=== PATIENT | male | born 1940 | race Caucasian/White ===

== ENCOUNTER 2017-01-06 08:49 | Outpatient (CLI) | payer MEDICARE, OTHER ==
[2007-06-18 18:19] VITALS: BP 120/74
[~2017-01-06] VITALS: Ht 185.5 cm; Wt 113.6 kg
[~2017-01-06 08:49] MED LIST: ADALAT; ASPIRIN E.C. 8181 MG PO; AVANDIA; CARDIZEM CD 18180 MG PO; CLOPIDOGREL; COREG 25MG25 MG/TAB PO; GLUCOPHAGE; GLUCOPHAGE1000 MG PO; GLYBURIDE MICRON3 MG PO; HYTRIN5 MG PO; KLOR-CON M1010 MEQ PO; LEVOTHYROXIN0.075 MG PO; MICRONASE5 MG PO; PLAVIX 75MG TAB75 MG PO; PRAVACHOL80 MG PO; PRINIVIL40 MG PO; PROSCAR 5MG5 MG PO; SLO NIACIN500 MG PO; SYNTHROID0.175 MG PO; ZESTRIL; ZOCOR
[2017-01-06 09:37] VITALS: BP 172/584; PULSE 77; TEMP 97.5
[2017-01-06] MEDS ORDERED: CARDIZEM CD 24240 MG PO (09:45)
[2017-01-06] MEDS ORDERED: FLOVENT DI50 MCG/Act IH (09:49)
[2017-01-06] MEDS ORDERED: LASIX 40MG TABL40 MG PO (09:49)
[2017-01-06] MEDS ORDERED: NEURONTIN300 MG/CAP PO (10:04)
[2017-01-06] MEDS ORDERED: ZANTAC 150MG T150 MG PO (10:45)
[2017-01-06] MEDS ORDERED: ONGLYZA5 MG PO (10:46)
[2017-01-06] MEDS ORDERED: 00186-0370-20 IH (10:49)
[2017-01-06] MEDS ORDERED: HCTZ 25MG TAB25 MG PO (10:50)
[2017-01-06] MEDS ORDERED: CEPHALEXIN500 M1 PO (12:37)
== END 2017-01-06 13:56 | disposition home or self-care (01) ==
LOC: COL.CAR 08:49
DX: R42 Dizziness and giddiness (principal); R55 Syncope and collapse; E11.40 Type 2 diabetes mellitus with diabetic neuropathy, unspecified; I10 Essential (primary) hypertension; E03.9 Hypothyroidism, unspecified; I73.9 Peripheral vascular disease, unspecified; M19.90 Unspecified osteoarthritis, unspecified site; E78.2 Mixed hyperlipidemia; M47.897 Other spondylosis, lumbosacral region; M47.896 Other spondylosis, lumbar region; I25.10 Atherosclerotic heart disease of native coronary artery without angina pectoris; R06.01 Orthopnea
CPT/HCPCS: 27124; C1764

== ENCOUNTER 2017-12-24 20:04 | Emergency (ER) | payer MEDICARE, OTHER ==
[2007-06-18 18:19] VITALS: BP 120/74
[~2017-12-24] VITALS: Ht 185.4 cm; Wt 113.6 kg
[~2017-12-24 20:04] MED LIST changes: +00186-0370-20 IH; +CARDIZEM CD 24240 MG PO; +CEPHALEXIN500 M1 PO; +FLOVENT DI50 MCG/Act IH; +HCTZ 25MG TAB25 MG PO; +LASIX 40MG TABL40 MG PO; +NEURONTIN300 MG/CAP PO; +ONGLYZA5 MG PO; +ZANTAC 150MG T150 MG PO
[2017-12-24 20:16] VITALS: TEMP 96.3
[2017-12-24 20:30] LABS: BASO % 0.3 % (0.0-2.0); EOS # 0.1 (0.0-0.7); EOS % 0.7 % (0-4.0); GRAN # 9.6 (1.4-6.5); GRAN % 78.2 % (42.2-75.2); HEMATOCRIT 38.9 % (42.0-52.0); HEMOGLOBIN 13.2 g/dl (13.5-18.0); LYMPH # 1.8 (1.2-3.4); LYMPH % 14.6 % (20.0-51.0); MEAN CELL VOLUME 91 fl (80.0-100.0); MEAN CORPUSCULAR HEMOGLOBIN 31 pg (27.0-31.0); MEAN CORPUSCULAR HGB CONC 34 g/dl (33.0-37.0); MONO # 0.7 (0.1-0.6); MONO % 5.5 % (1.7-9.3); PLATELET COUNT 261 K/mm3 (130-400); RED BLOOD COUNT 4.27 M/mm3 (4.20-5.60); REDCELL DISTRIBUTION WIDTH-CV 13.1 % (11.5-14.5)
[2017-12-24] MEDS ORDERED: ASPIRIN 81M81 MG/TA2 PO (20:31)
[2017-12-24] MEDS ORDERED: TUMS500 MG (20:32)
[2017-12-24] MEDS ORDERED: TIAZAC240 MG PO (20:33)
[2017-12-24] MEDS ORDERED: COREG 6.256.25 MG/TA PO (20:33)
[2017-12-24 20:34] LABS: PROTHROMBIN TIME 11.2 SECONDS (9.7-12.8)
[2017-12-24] MEDS ORDERED: PROSCAR 5MG5 MG PO (20:34)
[2017-12-24] MEDS ORDERED: FLONASEALLERGY NS (20:34)
[2017-12-24 20:37] LABS: PARTIAL THROMBOPLASTIN TIME 27.2 SECONDS (26.0-37.0)
[2017-12-24] MEDS ORDERED: K-DUR20 MEQ PO (20:37)
[2017-12-24] MEDS ORDERED: HCTZ 25MG TAB25 MG PO (20:37)
[2017-12-24 20:42] LABS: ALANINE AMINOTRANSFERASE 23 U/L (21-72); ALBUMIN 4.3 gm/dL (3.5-5.0); ALKALINE PHOSPHATASE 99 U/L (50-136); ANION GAP 16 mmol/L (7-16); AST,SGOT 22 U/L (15-37); BILIRUBIN,TOTAL 0.3 mg/dL (0.0-1.0); BLOOD UREA NITROGEN 42 mg/dL (9-20); CALCIUM 9.6 mg/dL (8.4-10.2); CARBON DIOXIDE 24 mmol/L (22-30); CHLORIDE 98 mmol/L (98-107); CREATININE, serum 1.99 mg/dL (0.66-1.25); GLUCOSE 297 mg/dL (74-106); POTASSIUM 4.8 mmol/L (3.4-5.0); SODIUM 138 mmol/L (137-145); TOTAL PROTEIN 8.2 gm/dL (6.4-8.2)
[2017-12-24 20:53] LABS: TROPONIN-I < 0.012 ng/mL (0.000-0.034)
[2017-12-24] MEDS ORDERED: FLOMAX 0.40.4 MG/CAP PO (20:56)
[2017-12-24 21:23] VITALS: BP 118/67; PULSE 43
== END 2017-12-24 22:00 | disposition short-term general hospital (02) ==
LOC: COL.ER 20:04
PROVIDERS: Family Medicine
DX: R00.1 Bradycardia, unspecified (principal); E11.9 Type 2 diabetes mellitus without complications; I25.10 Atherosclerotic heart disease of native coronary artery without angina pectoris; Z95.5 Presence of coronary angioplasty implant and graft; Z90.49 Acquired absence of other specified parts of digestive tract; Z79.84 Long term (current) use of oral hypoglycemic drugs; Z79.82 Long term (current) use of aspirin; Z79.51 Long term (current) use of inhaled steroids; Z79.02 Long term (current) use of antithrombotics/antiplatelets
CPT/HCPCS: J7030

== ENCOUNTER → 2018-01-19 | Outpatient (CLI) | payer MEDICARE, OTHER ==
[~2018-01-19] MED LIST changes: +ASPIRIN 81M81 MG/TA2 PO; +COREG 6.256.25 MG/TA PO; +FLOMAX 0.40.4 MG/CAP PO; +FLONASEALLERGY NS; +K-DUR20 MEQ PO; +TIAZAC240 MG PO; +TUMS500 MG
== END ==
LOC: SUN.DIA
DX: E11.21 Type 2 diabetes mellitus with diabetic nephropathy (principal); E11.40 Type 2 diabetes mellitus with diabetic neuropathy, unspecified; E11.51 Type 2 diabetes mellitus with diabetic peripheral angiopathy without gangrene; Z79.4 Long term (current) use of insulin; E78.5 Hyperlipidemia, unspecified; I10 Essential (primary) hypertension; E03.9 Hypothyroidism, unspecified; E66.9 Obesity, unspecified; Z71.3 Dietary counseling and surveillance
CPT/HCPCS: G0108

== ENCOUNTER → 2018-02-14 | Outpatient (CLI) | payer MEDICARE, OTHER | LOC: SUN.DIA 14:08 | DX: E11.40 Type 2 diabetes mellitus with diabetic neuropathy, unspecified (principal); E11.51 Type 2 diabetes mellitus with diabetic peripheral angiopathy without gangrene; E11.21 Type 2 diabetes mellitus with diabetic nephropathy; Z79.4 Long term (current) use of insulin; E78.5 Hyperlipidemia, unspecified; I10 Essential (primary) hypertension; E03.9 Hypothyroidism, unspecified; E66.9 Obesity, unspecified; Z71.3 Dietary counseling and surveillance ==

== ENCOUNTER → 2018-02-23 | Outpatient (CLI) | payer MEDICARE, OTHER | LOC: SUN.DIA 09:30 | DX: E11.21 Type 2 diabetes mellitus with diabetic nephropathy (principal); E11.40 Type 2 diabetes mellitus with diabetic neuropathy, unspecified; E11.51 Type 2 diabetes mellitus with diabetic peripheral angiopathy without gangrene; Z79.4 Long term (current) use of insulin; E78.5 Hyperlipidemia, unspecified; I10 Essential (primary) hypertension; E03.9 Hypothyroidism, unspecified; E66.9 Obesity, unspecified; Z71.3 Dietary counseling and surveillance | CPT/HCPCS: G0109 ==

== ENCOUNTER → 2018-03-02 | Outpatient (CLI) | payer MEDICARE, OTHER | LOC: SUN.DIA 09:30 | DX: E11.21 Type 2 diabetes mellitus with diabetic nephropathy (principal); E11.40 Type 2 diabetes mellitus with diabetic neuropathy, unspecified; E11.51 Type 2 diabetes mellitus with diabetic peripheral angiopathy without gangrene; Z79.4 Long term (current) use of insulin; E78.5 Hyperlipidemia, unspecified; I10 Essential (primary) hypertension; E03.9 Hypothyroidism, unspecified; E66.9 Obesity, unspecified; Z71.3 Dietary counseling and surveillance | CPT/HCPCS: G0109 ==

== ENCOUNTER → 2018-03-16 | Outpatient (CLI) | payer MEDICARE, OTHER | LOC: SUN.DIA 09:30 | DX: E11.21 Type 2 diabetes mellitus with diabetic nephropathy (principal); E11.40 Type 2 diabetes mellitus with diabetic neuropathy, unspecified; E11.51 Type 2 diabetes mellitus with diabetic peripheral angiopathy without gangrene; Z79.4 Long term (current) use of insulin; E78.5 Hyperlipidemia, unspecified; I10 Essential (primary) hypertension; E03.9 Hypothyroidism, unspecified; E66.9 Obesity, unspecified; Z71.3 Dietary counseling and surveillance | CPT/HCPCS: G0109 ==

== ENCOUNTER → 2018-03-23 | Outpatient (CLI) | payer MEDICARE, OTHER | LOC: SUN.DIA 09:30 | DX: E11.9 Type 2 diabetes mellitus without complications (principal); E11.8 Type 2 diabetes mellitus with unspecified complications; E78.5 Hyperlipidemia, unspecified; I10 Essential (primary) hypertension; E03.9 Hypothyroidism, unspecified; N28.9 Disorder of kidney and ureter, unspecified; E11.40 Type 2 diabetes mellitus with diabetic neuropathy, unspecified | CPT/HCPCS: G0109 ==

== ENCOUNTER → 2018-05-09 | Outpatient (CLI) | payer MEDICARE, OTHER | LOC: SUN.DIA 08:42 | DX: E11.40 Type 2 diabetes mellitus with diabetic neuropathy, unspecified (principal); E78.5 Hyperlipidemia, unspecified; E03.9 Hypothyroidism, unspecified; I10 Essential (primary) hypertension; E66.9 Obesity, unspecified; I73.9 Peripheral vascular disease, unspecified ==

== ENCOUNTER → 2018-10-17 | Outpatient (CLI) | payer MEDICARE, OTHER | LOC: SUN.DIA 10-09 14:28 | DX: E11.40 Type 2 diabetes mellitus with diabetic neuropathy, unspecified (principal); E78.5 Hyperlipidemia, unspecified; E03.9 Hypothyroidism, unspecified; E66.9 Obesity, unspecified; I73.9 Peripheral vascular disease, unspecified | CPT/HCPCS: G0108 ==

== ENCOUNTER 2019-03-02 09:58 | Emergency (ER) | payer MEDICARE ==
[2007-06-18 18:19] VITALS: BP 120/74
[~2019-03-02] VITALS: Ht 185.4 cm; Wt 113.6 kg
[2019-03-02] MEDS ORDERED: RT SPIRIVA18 MCG INH (10:08)
[2019-03-02 10:17] LABS: BASO # 0.1 (0.0-0.2); BASO % 0.5 % (0.0-2.0); EOS # 0.3 (0.0-0.7); EOS % 3.1 % (0-4.0); GRAN # 6.9 (1.4-6.5); GRAN % 67.2 % (42.2-75.2); HEMATOCRIT 37.3 % (42.0-52.0); HEMOGLOBIN 12.5 g/dl (13.5-18.0); LYMPH # 2.2 (1.2-3.4); LYMPH % 21.4 % (20.0-51.0); MEAN CELL VOLUME 93 fl (80.0-100.0); MEAN CORPUSCULAR HEMOGLOBIN 31 pg (27.0-31.0); MEAN CORPUSCULAR HGB CONC 34 g/dl (33.0-37.0); MEAN PLATELET VOLUME 9.8 fl (7.4-10.4); MONO # 0.8 (0.1-0.6); MONO % 7.5 % (1.7-9.3); PLATELET COUNT 247 K/mm3 (130-400); RED BLOOD COUNT 4.02 M/mm3 (4.20-5.60); REDCELL DISTRIBUTION WIDTH-CV 12.6 % (11.5-14.5)
[2019-03-02 10:25] LABS: PROTHROMBIN TIME 11.1 SECONDS (9.7-12.8)
[2019-03-02 10:27] LABS: ALANINE AMINOTRANSFERASE 14 U/L (21-72); ALBUMIN 3.8 gm/dL (3.5-5.0); ALKALINE PHOSPHATASE 69 U/L (50-136); ANION GAP 8 mmol/L (7-16); AST,SGOT 27 U/L (15-37); BILIRUBIN,TOTAL 0.6 mg/dL (0.0-1.0); BLOOD UREA NITROGEN 34 mg/dL (9-20); CALCIUM 9.4 mg/dL (8.4-10.2); CARBON DIOXIDE 29 mmol/L (22-30); CHLORIDE 103 mmol/L (98-107); CREATININE, serum 1.42 (0.66-1.25); GLUCOSE 165 mg/dL (74-106); POTASSIUM 4.4 mmol/L (3.4-5.0); SODIUM 140 mmol/L (137-145); TOTAL PROTEIN 7.7 gm/dL (6.4-8.2)
[2019-03-02 10:28] LABS: PARTIAL THROMBOPLASTIN TIME 25.3 SECONDS (26.0-37.0)
[2019-03-02 10:39] LABS: TROPONIN-I < 0.012 ng/mL (0.000-0.035)
[2019-03-02 13:40] VITALS: BP 137/77; PULSE 64; TEMP 97.4
== END 2019-03-02 14:04 | disposition home or self-care (01) ==
LOC: COL.ER 09:58
PROVIDERS: Family Medicine
DX: R07.89 Other chest pain (principal); I10 Essential (primary) hypertension; E11.9 Type 2 diabetes mellitus without complications; I25.10 Atherosclerotic heart disease of native coronary artery without angina pectoris; Z95.0 Presence of cardiac pacemaker; Z79.02 Long term (current) use of antithrombotics/antiplatelets; Z79.84 Long term (current) use of oral hypoglycemic drugs

== ENCOUNTER 2019-06-19 09:15 | Outpatient (RCR) | payer OTHER ==
[~2019-06-19 09:15] MED LIST changes: +RT SPIRIVA18 MCG INH
== END 2019-07-03 14:16 | disposition home or self-care (01) ==
LOC: WSC 09:15
DX: R53.1 Weakness (principal)

== ENCOUNTER → 2020-06-12 | Outpatient (CLI) | payer OTHER | LOC: COL.RAD 10:07 | DX: N18.9 Chronic kidney disease, unspecified (principal) ==

== ENCOUNTER 2020-10-03 09:34 | Inpatient (IN) | payer MEDICARE ==
[~2020-10-03] VITALS: Ht 185.4 cm; Wt 110.0 kg
[2020-10-03 10:19] LABS: BASO % 0.3 % (0.0-2.0); EOS # 0.2 (0.0-0.7); GRAN # 6.6 (1.4-6.5); GRAN % 74.4 % (42.2-75.2); HEMATOCRIT 29.5 % (42.0-52.0); HEMOGLOBIN 9.5 g/dl (13.5-18.0); LYMPH # 1.3 (1.2-3.4); LYMPH % 14.5 % (20.0-51.0); MEAN CELL VOLUME 96 fl (80.0-100.0); MEAN CORPUSCULAR HEMOGLOBIN 31 pg (27.0-31.0); MEAN CORPUSCULAR HGB CONC 32 g/dl (33.0-37.0); MEAN PLATELET VOLUME 10.5 fl (7.4-10.4); MONO # 0.8 (0.1-0.6); MONO % 8.5 % (1.7-9.3); PLATELET COUNT 234 K/mm3 (130-400); RED BLOOD COUNT 3.09 M/mm3 (4.20-5.60); REDCELL DISTRIBUTION WIDTH-CV 13.4 % (11.5-14.5)
[2020-10-03 10:31] LABS: ALBUMIN 3.9 gm/dL (3.5-5.0); BILIRUBIN,TOTAL 0.3 mg/dL (0.0-1.0); CALCIUM 8.7 mg/dL (8.4-10.2); CREATININE, serum 1.98 (0.66-1.25); POTASSIUM 4.1 mmol/L (3.4-5.0); TOTAL PROTEIN 8.4 gm/dL (6.4-8.2)
[2020-10-03 10:43] LABS: TROPONIN-I 0.023 ng/mL (0.000-0.035)
[2020-10-03] MEDS ORDERED: GLUCOTROL10 MG PO (12:25)
[2020-10-03] MEDS ORDERED: PEPCID 20MG TAB20 MG PO (12:25)
[2020-10-03] MEDS ORDERED: COREG 25MG25 MG/TAB PO (12:26)
[2020-10-03] MEDS ORDERED: CARTIA XT180 MG PO (12:27)
[2020-10-03] MEDS ORDERED: LEVEMIR100 U/ML SQ (12:28)
[2020-10-03] MEDS ORDERED: PRINIVIL40 MG PO (12:28)
[2020-10-03] MEDS ORDERED: PRAVACHOL80 MG PO (12:28)
[2020-10-03 14:29] LABS: COLLECTION METHOD CLEAN CATCH
[2020-10-03 14:41] LABS: PH 5 (5-8); SQUAMOUS EPITHELIAL 0-2 /hpf; URINE APPEARANCE Clear; URINE BACTERIA None Seen /hpf; URINE BILIRUBIN Negative (NEGATIVE); URINE BLOOD 1+ (NEGATIVE); URINE COLOR Yellow; URINE GLUCOSE 1+ (NEGATIVE); URINE KETONE Negative (NEGATIVE); URINE LEUKOCYTE ESTERASE Negative (NEGATIVE); URINE NITRATE Negative (NEGATIVE); URINE PROTEIN(semi-quant) 3+ (NEGATIVE); URINE UROBILINOGEN Negative (NEGATIVE)
[2020-10-03 14:59] LABS: INR 1.1 (0.8-3.0); PROTHROMBIN TIME 12.7 SECONDS (9.7-12.8)
--- NOTE | 2020-10-03 17:00 | NUR ---
Admission assesment completed, alert/oriented, vital signs stable, denies pain or discomfort at this time, reports he is a little SOA, heart RRR/paced on tele, notified of cardiology consult and plans for heart cath on Tuesday, lungs CTA/ diminished, o2 sats WNL on room air, patient is up indepdently, denies other needs at this time
[2020-10-03 17:25] VITALS: BP 177/76; PULSE 61; TEMP 98.3
[2020-10-03 17:29] VITALS: BP 177/76; PULSE 61; TEMP 98.3
[2020-10-03 20:34] VITALS: BP 174/72; PULSE 64; TEMP 98.1
[2020-10-03 22:12] VITALS: BP 173/72
--- NOTE | 2020-10-03 23:10 | NUR ---
PATIENT WAS RECEIVED IN THE LONG FAIR SITTED ON HIS WALKER DUE MEDICATIONS GIVEN PER VIOLETTA.BP SYSTOLIC ABOVE 173 HYDRALLAZINE 20 MG GIVEN C/O DIZZINESS AND ABD UPSET,BP RECHECKED,AIRCRAFT DISPATCHER INFORMED ORDERS IN NOV.PATIENT REASSURED.
[2020-10-04] VITALS (7 sets, daily range): BP systolic 155–176; BP diastolic 68–85; PULSE 69–72; TEMP 97.3–98.1
--- NOTE | 2020-10-04 01:16 | NUR ---
Patient complained of mild pain to left leg. Requested PRN APAP. Called DARIANA Ellison and new order obtained. Given to patient at this time.
--- NOTE | 2020-10-04 05:58 | NUR ---
PATIENT HAD A CALM NIGHT ,BLOOD PRESSURE WAS 170S PROVIDER NOTIFIED,ORDERED MEDS PER NOV.NO SIGNS AND SYMPTOMS REPORTED BY THE PATIENT.DENIES PAIN.NO NEEDS AT THIS TIME
--- NOTE | 2020-10-04 07:00 | NUR ---
Report with THOR Nieto and THOR Meadows. Pt ambulating in room and hallway with steady gait and walker. Pt denies needs at this time.
[2020-10-04 09:24] LABS: MEAN CELL VOLUME 96 fl (80.0-100.0); MEAN CORPUSCULAR HGB CONC 32 g/dl (33.0-37.0); MEAN PLATELET VOLUME 9.7 fl (7.4-10.4); PLATELET COUNT 231 K/mm3 (130-400); RED BLOOD COUNT 3.15 M/mm3 (4.20-5.60); REDCELL DISTRIBUTION WIDTH-CV 13.4 % (11.5-14.5)
[2020-10-04 09:30] LABS: HEMATOCRIT 30.1 % (42.0-52.0); HEMOGLOBIN 9.6 g/dl (13.5-18.0); MEAN CORPUSCULAR HEMOGLOBIN 30 pg (27.0-31.0)
[2020-10-04 09:37] LABS: CALCIUM 8.6 mg/dL (8.4-10.2); CREATININE, serum 2.06 (0.66-1.25); POTASSIUM 4.6 mmol/L (3.4-5.0)
--- NOTE | 2020-10-04 18:58 | NUR ---
Report with THOR Rogel. Pt sitting in his walker outside room door and intermittently ambulating in hallway. Pt denies needs at this time.
--- NOTE | 2020-10-04 19:49 | NUR ---
CALLED TO HAVE TELE LEADS CHECKED, POOR TRANSMISSION AT THIS TIME
[2020-10-05 00:20] VITALS: BP 175/76; PULSE 66; TEMP 97.7
[2020-10-05 03:20] VITALS: BP 171/70; PULSE 69; TEMP 97.8
[2020-10-05 07:14] VITALS: BP 169/75; PULSE 68; TEMP 97.7
--- NOTE | 2020-10-05 08:00 | NUR ---
Assessment complete. Pt sitting up on side of bed, A&O x 4. Physical assessment unremarkable. Pt denies pain or needs at this time. Saline lock IV to right forearm without s/s of complications. POC reviewed with pt. Call light in reach.
[2020-10-05 08:12] LABS: MEAN CELL VOLUME 94 fl (80.0-100.0); MEAN CORPUSCULAR HGB CONC 33 g/dl (33.0-37.0); MEAN PLATELET VOLUME 10.2 fl (7.4-10.4); PLATELET COUNT 225 K/mm3 (130-400); RED BLOOD COUNT 3.05 M/mm3 (4.20-5.60); REDCELL DISTRIBUTION WIDTH-CV 13.5 % (11.5-14.5)
[2020-10-05 08:14] LABS: HEMATOCRIT 28.6 % (42.0-52.0); HEMOGLOBIN 9.3 g/dl (13.5-18.0); MEAN CORPUSCULAR HEMOGLOBIN 30 pg (27.0-31.0)
[2020-10-05 08:26] LABS: CALCIUM 8.6 mg/dL (8.4-10.2); CREATININE, serum 2.1 (0.66-1.25); POTASSIUM 4.2 mmol/L (3.4-5.0)
--- NOTE | 2020-10-05 11:36 | NUR ---
SW called patient's to complete intake. Patient's Stephany [phone]. Spouse is also the DPOA- as well as daughter Jennifer [phone]. Spouse states that patient does utilize a walker at home and is independent with ADL's. Spouse provides that patient's PCP is Dr. Vega and he obtains his medications from the [facility] or [facility], and provides that he is able to afford his medications. Spouse provides that patient does not utilize any services at this time and doesn't feel as though he will need services upon DC. SW provided information in regards to the SW continuing to follow patient should there be any resources that are needed up on DC. SW will continue to follow.
[2020-10-05 11:48] VITALS: BP 164/72; PULSE 61; TEMP 97.8
[2020-10-05 15:47] VITALS: BP 159/78; PULSE 67; TEMP 97.9
--- NOTE | 2020-10-05 16:01 | NUR ---
IVF's stopped and diconnected per phone order to hold fluids. Pt reports headache still lingering and building, requesting Tylenol which is administered. Pt reports nausea has improved since medication given. Sched One time dose of Lasix administered per orders, pt encouraged to use urinal for voiding to monitor output, verbalizes understanding. Call light in reach.
--- NOTE | 2020-10-05 18:05 | NUR ---
Pt sitting on side of bed following supper, reports improvement to headache. Pt asking about taking the dressings off his bilat lower ext before tonight. No further needs reported. Call light in reach.
--- NOTE | 2020-10-05 19:09 | NUR ---
Report with THOR Rogel. Pt resting in bed with eyes closed, resp even and unlabored. jacquard loom card changer nurse agrees to assist with dressings when pt awake.
[2020-10-05 20:21] VITALS: BP 163/79; PULSE 75; TEMP 97.9
[2020-10-06] VITALS (15 sets, daily range): BP systolic 110–198; BP diastolic 45–128; PULSE 59–78; TEMP 97.4–98.4
--- NOTE | 2020-10-06 06:23 | NUR ---
Patient has been NPO since midnight. No requests or concerns verbalized by patient at this time. 0600 IV fluids started at 0600.
[2020-10-06 06:47] LABS: CALCIUM 8.5 mg/dL (8.4-10.2); CREATININE, serum 2.37 (0.66-1.25); POTASSIUM 4.4 mmol/L (3.4-5.0)
[2020-10-06 07:03] LABS: INR 1.2 (0.8-3.0); PROTHROMBIN TIME 12.9 SECONDS (9.7-12.8)
[2020-10-06 07:06] LABS: PARTIAL THROMBOPLASTIN TIME 29.5 SECONDS (26.0-37.0)
--- NOTE | 2020-10-06 07:57 | NUR ---
patient alert and oriented. Aide report 86-88% on room air. placed patient on 2L O2 NC, saturation at 93%. RLE 3+ edema, LLE 2+ edema. disolored BLE. resting in bed at this time.
[2020-10-06 08:05] LABS: MEAN CELL VOLUME 97 fl (80.0-100.0); MEAN CORPUSCULAR HGB CONC 32 g/dl (33.0-37.0); MEAN PLATELET VOLUME 10.9 fl (7.4-10.4); PLATELET COUNT 212 K/mm3 (130-400); RED BLOOD COUNT 2.82 M/mm3 (4.20-5.60); REDCELL DISTRIBUTION WIDTH-CV 13.4 % (11.5-14.5)
[2020-10-06 08:08] LABS: HEMATOCRIT 27.3 % (42.0-52.0); HEMOGLOBIN 8.7 g/dl (13.5-18.0); MEAN CORPUSCULAR HEMOGLOBIN 31 pg (27.0-31.0)
--- NOTE | 2020-10-06 10:36 | NUR ---
SEE MERGE DOCUMENTATION FOR MEDICATION ADMINISTRATION TIMES AND INTRA/POST PROCEDURE SEDATION ASSESSMENTS. RIGHT HAND BARBEAU TEST POSITIVE.
--- NOTE | 2020-10-06 11:37 | NUR ---
patient back from experimental machining lab manager. on 2L O2 at 95% 14CC ON Right radial.
[2020-10-06 12:41] LABS: IRON,SERUM 41 ug/dL (35-150)
[2020-10-06 12:50] LABS: TOTAL IRON BINDING CAPACITY 277 ug/dL (261-462)
--- NOTE | 2020-10-06 14:53 | NUR ---
Patient worked with PT/OT and recommendation is for Home. SW will continue to follow.
[2020-10-07 04:36] VITALS: BP 118/56; PULSE 65; TEMP 97.8
[2020-10-07 06:55] LABS: HEMOGLOBIN 7.9 g/dl (13.5-18.0); MEAN CELL VOLUME 99 fl (80.0-100.0); MEAN CORPUSCULAR HEMOGLOBIN 31 pg (27.0-31.0); MEAN CORPUSCULAR HGB CONC 32 g/dl (33.0-37.0); MEAN PLATELET VOLUME 10.8 fl (7.4-10.4); PLATELET COUNT 198 K/mm3 (130-400); RED BLOOD COUNT 2.53 M/mm3 (4.20-5.60); REDCELL DISTRIBUTION WIDTH-CV 13.4 % (11.5-14.5)
[2020-10-07 07:05] LABS: CALCIUM 8.2 mg/dL (8.4-10.2); CREATININE, serum 2.63 (0.66-1.25); POTASSIUM 4.7 mmol/L (3.4-5.0)
[2020-10-07 07:54] VITALS: BP 134/63; PULSE 63; TEMP 97.8
--- NOTE | 2020-10-07 09:45 | NUR ---
Initial visit; Patient thanked Heel Coverer for loooking in on him, listening and offering God's blessings.
[2020-10-07 11:29] VITALS: BP 107/49; PULSE 59; TEMP 97.7
--- NOTE | 2020-10-07 13:08 | NUR ---
Pt assessment completed and charted, medications administered per nov. pt A&O, 1 assist in room w/ walker. Pt on room air at this time. At noon VS check, pt 88% on room air, rechecked.. at 93% on room air. Pt denies any SOB, N/V/D, chest pain, general pain. Pt has LFA INT IV that flushes well, no issues. Pt has BLE edema 2-3+, RLE has blisters, unopened, usually wrapped and cared for by , now open to air. Pt requesting leaving leg open to air. Pt had heart cath 10/06 (yesterday), rt radial site CDI, covered w/ bandaid. Pt on tele, paced. Rt LS cta, LLL diminished. No other issues noted at this time. Call light within reach.
[2020-10-07 16:15] VITALS: BP 146/62; PULSE 69; TEMP 97.6
--- NOTE | 2020-10-07 16:27 | NUR ---
Carrot Harvester followed up with patient to discuss home health services. Patient states he would be interested in having services through [facility] again if he qualifies. Patient states [facility] time the [facility] paid [facility] these services, however patient also has Medicare [employer]. PEDRO PABLO contacted THOR Chappell at the [facility] who requested records. PEDRO PABLO faxed. Misti advised that even with [employer], the VA would have to approve services. PEDRO PABLO contacted Lisa at [facility] and faxed referral. Lisa states she thinks patient's services could be approved through [employer] and they would not necessarily need [facility] approval. Lisa states in the past they have run patient's advantage plan as they payer source. PEDRO PABLO will continue to follow.
[2020-10-07 19:09] LABS: URINE PROTEIN:CREAT RATIO 2.15 (0.00-0.14)
[2020-10-07 21:07] VITALS: BP 142/66; PULSE 65; TEMP 97.8
[2020-10-08] VITALS (7 sets, daily range): BP systolic 122–148; BP diastolic 59–71; PULSE 58–68; TEMP 97.2–97.5
--- NOTE | 2020-10-08 06:00 | NUR ---
PATIENT HAD A CALM NIGHT,ON O2 3L VIA NC.DUE MEDS GIVEN,NO CONCERNS AT THIS TIME.
[2020-10-08 07:30] LABS: BASO % 0.3 % (0.0-2.0); EOS # 0.1 (0.0-0.7); EOS % 1.6 % (0-4.0); GRAN # 4.8 (1.4-6.5); GRAN % 69.9 % (42.2-75.2); LYMPH # 1.3 (1.2-3.4); LYMPH % 18.7 % (20.0-51.0); MEAN CELL VOLUME 97 fl (80.0-100.0); MEAN CORPUSCULAR HGB CONC 32 g/dl (33.0-37.0); MEAN PLATELET VOLUME 10.7 fl (7.4-10.4); MONO # 0.6 (0.1-0.6); MONO % 9.2 % (1.7-9.3); PLATELET COUNT 210 K/mm3 (130-400); RED BLOOD COUNT 2.86 M/mm3 (4.20-5.60); REDCELL DISTRIBUTION WIDTH-CV 13.2 % (11.5-14.5)
[2020-10-08 07:32] LABS: HEMATOCRIT 27.7 % (42.0-52.0); HEMOGLOBIN 8.8 g/dl (13.5-18.0); MEAN CORPUSCULAR HEMOGLOBIN 31 pg (27.0-31.0)
[2020-10-08 07:40] LABS: CALCIUM 8.4 mg/dL (8.4-10.2); CREATININE, serum 3.16 (0.66-1.25); POTASSIUM 4.7 mmol/L (3.4-5.0)
--- NOTE | 2020-10-08 08:33 | NUR ---
Pt assessment completed and charted, medications administered per nov. pt A&O, independent in room w/ walker. pt on 2L NC upon entry, pt doesn't wear O2 at baseline and only occasionally while here. pt satting 95-97%, O2 removed at this time per pt request. Breathing is even and unlabored, RLL LS diminished, allother parra CTA. LFA INT IV flushes w/o issue. Pt on tele, paced, no issues noted. BLE edema 2-3+, reddened, chronic blisters to LLE, unopened, intact, open to air. Pt c/o of rt leg pain, per pt "d/t to sleeping in the bed". Requested and received tylenol PRN per nov. Pulses strong bilaterally. No further needs at this time. Call light within reach, breakfast delivered.
--- NOTE | 2020-10-08 14:47 | NUR ---
Pt ambulating halls independently, requesting stool softener. DARIANA dimas notified, she will place order.
--- NOTE | 2020-10-08 17:39 | NUR ---
Pt ambulating from bathroom back to bed, sitting up for dinner, reports pain to upper legs and hips 8 out of 10, requesting Tyenol which was administered per orders. Pt denies further needs at this time. Call light in reach.
--- NOTE | 2020-10-08 18:19 | NUR ---
Pt c/o dizziness and nausea approx 40 min following sched Hydralazine. contracts director provider notified. Orders placed.
--- NOTE | 2020-10-08 18:59 | NUR ---
Report with THOR Meadows and THOR Nieto. Pt resting in bed, reports continued dizziness. No further needs reported. Call light in reach.
--- NOTE | 2020-10-08 20:10 | NUR ---
Patient complaining of severe pain to bilateral hips, more on left side, shoot down left leg. Had already received PRN APAP which was not effective. Spoke with ELIDIA Munoz. New order for PRN Ultram received.
--- NOTE | 2020-10-08 22:11 | NUR ---
PATIENT WAS RECEIVED FAIR IN BED REPORTED NAUSEA AND DIZZINESS.DUE MEDICATION DONE,ASSESSMENT DONE.GIVEN TRAMADOL FOR BACK PAIN.PATIENT LEFT COMFORTABLE.NO OTHER NEEDS AT THIS TIME.
[2020-10-09 00:27] VITALS: BP 102/44; PULSE 60; TEMP 97.4
--- NOTE | 2020-10-09 00:50 | NUR ---
VITALS TAKEN PATIENT SATS AT 87.PUT UP ON O2 2 VIA NC.NOW SATTING ABOVE 90.
[2020-10-09 05:23] VITALS: BP 137/50; PULSE 59; TEMP 97.5
[2020-10-09 08:00] LABS: CALCIUM 8.1 mg/dL (8.4-10.2); CREATININE, serum 3.29 (0.66-1.25); POTASSIUM 5.2 mmol/L (3.4-5.0)
[2020-10-09 08:06] LABS: HEMATOCRIT 25.7 % (42.0-52.0); HEMOGLOBIN 8.3 g/dl (13.5-18.0); MEAN CELL VOLUME 96 fl (80.0-100.0); MEAN CORPUSCULAR HEMOGLOBIN 31 pg (27.0-31.0); MEAN CORPUSCULAR HGB CONC 32 g/dl (33.0-37.0); MEAN PLATELET VOLUME 10.7 fl (7.4-10.4); PLATELET COUNT 193 K/mm3 (130-400); RED BLOOD COUNT 2.67 M/mm3 (4.20-5.60); REDCELL DISTRIBUTION WIDTH-CV 13.3 % (11.5-14.5)
[2020-10-09 08:21] VITALS: BP 127/59; PULSE 74; TEMP 97.4
[2020-10-09 12:00] VITALS: BP 110/41; PULSE 63
--- NOTE | 2020-10-09 12:56 | NUR ---
Consulting Marine Engineer attended clinical rounds with the team and patient's , Stephany is at bedside. SW followed up with Stephany and patient about [facility]. Patient states he will see how things continue to go here and would still be open to HH services again if he feels he needs them. SW will continue to follow.
--- NOTE | 2020-10-09 13:46 | NUR ---
Primary nurse was assisted with [phone] patient care by [employer] student Dandre De Jesus and [employer] instructor Helena Huitron RN-.
[2020-10-09 15:18] LABS: CALCIUM 8.1 mg/dL (8.4-10.2); CREATININE, serum 3.59 (0.66-1.25); POTASSIUM 5.6 mmol/L (3.4-5.0)
[2020-10-09 17:27] VITALS: BP 128/57; PULSE 61; TEMP 37.5
--- NOTE | 2020-10-09 20:30 | NUR ---
PATIENT WAS RECEIVED WEAK IN BED C/O NAUSEA, VOMITTING AND DIZZINESS.WAS IN PAIN BUT COULD NOT TOLERATE PO MEDS.PROVIDER NOTIFIED,NO NEW ORDERS.PATIENT REQUESTED TO HAVE HIS BED AND MATTRESS CHANGED BECAUSE IT WAS UNCOMFORTABLE SAME DONE AND PATIENT LEFT COMFORTABLE.INSULIN WAS NOT GIVEN PT HAD NO ORAL INTAKE.NO OTHER NEEDS AT THIS TIME.
[2020-10-09 20:43] VITALS: BP 123/51; PULSE 65; TEMP 97.5
[2020-10-10 00:11] VITALS: BP 130/57; PULSE 62; TEMP 97.5
[2020-10-10 03:50] VITALS: BP 129/64; PULSE 59; TEMP 97.8
--- NOTE | 2020-10-10 05:47 | NUR ---
PATIENT REPORTS A GOOD NIGHT.PATIENT IS WEAK,HAS MILD NAUSEA AND THE DIZZINESS HAS REDUCED.ON O2 VIA NC AT 3L.PATIENT DENIES PAIN.NO CONCERNS AT THIS TIME.
[2020-10-10 07:10] LABS: BASO % 0.5 % (0.0-2.0); EOS # 0.1 (0.0-0.7); EOS % 0.8 % (0-4.0); GRAN % 75.6 % (42.2-75.2); LYMPH % 15.2 % (20.0-51.0); MEAN CELL VOLUME 96 fl (80.0-100.0); MEAN CORPUSCULAR HGB CONC 32 g/dl (33.0-37.0); MEAN PLATELET VOLUME 10.6 fl (7.4-10.4); MONO # 0.5 (0.1-0.6); MONO % 7.4 % (1.7-9.3); PLATELET COUNT 212 K/mm3 (130-400); RED BLOOD COUNT 2.72 M/mm3 (4.20-5.60); REDCELL DISTRIBUTION WIDTH-CV 13.3 % (11.5-14.5)
[2020-10-10 07:23] LABS: CALCIUM 8.3 mg/dL (8.4-10.2); CREATININE, serum 4.01 (0.66-1.25); POTASSIUM 5.5 mmol/L (3.4-5.0)
[2020-10-10 07:35] LABS: HEMATOCRIT 26.2 % (42.0-52.0); HEMOGLOBIN 8.3 g/dl (13.5-18.0); MEAN CORPUSCULAR HEMOGLOBIN 31 pg (27.0-31.0)
[2020-10-10 09:07] VITALS: BP 123/77; PULSE 72; TEMP 97.5
[2020-10-10 12:40] VITALS: BP 119/55; PULSE 62; TEMP 97.6
--- NOTE | 2020-10-10 12:42 | NUR ---
Pump Rebuilder collaborated with DARIANA Huston who advised patient would benefit from being seen by PT again. PT had signed off at the beginning of patient's stay as he was doing well. SW contacted JENNIFER To who advised he would see patient today.
--- NOTE | 2020-10-10 14:17 | NUR ---
Primary nurse was assisted with [phone] patient care by [employer] student Patricia De Jesus and [employer] instructor Helena Huitron RN-bc.
[2020-10-10 16:00] VITALS: BP 129/52; PULSE 67; TEMP 98.5
[2020-10-10 16:50] LABS: CALCIUM 8.2 mg/dL (8.4-10.2); CREATININE, serum 4.05 (0.66-1.25); POTASSIUM 5.7 mmol/L (3.4-5.0)
--- NOTE | 2020-10-10 18:32 | NUR ---
PT HAS HAD AN UNEVENTFUL DAY. HAS BEEN AT BEDSIDE ALL DAY. PT HAS HAD COMPLAINT OF PAIN IN THE LEFT LEG. BLISTERS ARE PRESENT ON BILATERAL LOWER EXTREMETIES. THE RIGHT LEG IS PARTICULARLY WORSE THAN THE LEFT, A LARGER 1 INCH BY 2 INCH BLISTER IS NOTED. PT DID HAVE SURGERY ON HIS RIGHT EYELID 5YEARS AGO, AND HE HAS BEEN RUBBING AT IT ALL DAY, IT HAS BEGUN TO BLEED. HE STATES THIS IS NORMAL FOR HIM, AND DOES NOT NEED/WANT ANY INTERVENTIONS FOR IT. NO OTHER CONCERNS AT THIS TIME.
[2020-10-10 20:47] VITALS: BP 132/60; PULSE 73; TEMP 97.9
[2020-10-11] VITALS (7 sets, daily range): BP systolic 115–152; BP diastolic 42–71; PULSE 57–66; TEMP 97.4–98.1
[2020-10-11 07:09] LABS: BASO % 0.4 % (0.0-2.0); EOS # 0.1 (0.0-0.7); EOS % 1.8 % (0-4.0); GRAN # 3.9 (1.4-6.5); GRAN % 68.2 % (42.2-75.2); LYMPH # 1.1 (1.2-3.4); LYMPH % 19.5 % (20.0-51.0); MEAN CELL VOLUME 96 fl (80.0-100.0); MEAN CORPUSCULAR HGB CONC 32 g/dl (33.0-37.0); MONO # 0.6 (0.1-0.6); MONO % 9.9 % (1.7-9.3); PLATELET COUNT 200 K/mm3 (130-400); RED BLOOD COUNT 2.68 M/mm3 (4.20-5.60); REDCELL DISTRIBUTION WIDTH-CV 13.5 % (11.5-14.5)
[2020-10-11 07:14] LABS: ALBUMIN 3.7 gm/dL (3.5-5.0); CALCIUM 8.4 mg/dL (8.4-10.2); CREATININE, serum 4.02 (0.66-1.25); PHOSPHOROUS 5.9 mg/dL (2.5-4.5); POTASSIUM 5.2 mmol/L (3.4-5.0)
[2020-10-11 07:18] LABS: HEMATOCRIT 25.8 % (42.0-52.0); HEMOGLOBIN 8.3 g/dl (13.5-18.0); MEAN CORPUSCULAR HEMOGLOBIN 31 pg (27.0-31.0)
--- NOTE | 2020-10-11 14:11 | NUR ---
Pt assessment completed and charted, medications administered per mar. Pt A&O, at bedside. Pt has LFA INT IV that flushes well. Pt on 2L NC intermittently throughout day, wears 2L NC HS. LS cta, HRRR, paced on tele. Pt denies chest pain, dizziness, N/V/D, numbness or tingling. Pt has blisters to BLE, 3+ edema. Rt posterior calf has large blister/opened, redness. Blisters to Lt calf are unopened/redness noted. Pt c/o lt hip pain/soreness d/t "sleeping position", denied need for medication at this time. Pt ambulated w/ PT using walker, 120 ft. No further needs expressed at this time. Call light within reach.
--- NOTE | 2020-10-11 21:13 | NUR ---
PT IS LAYING IN BED. ASSESSMENT COMPLETED. PT AMBULATED TO THE BATHROOM AND HAD 275 OUTPUT, YELLOW AND CLEAR. PT HAS C/O DISCOMFORT IN BOTH HIPS, AND WEAKNESS OF THE LEGS. NO OTHER CONCERNS AT THIS TIME.
--- NOTE | 2020-10-11 22:26 | NUR ---
PT HAS BEEN UP TO THE BATHROOM 2 TIMES THIS SHIFT. NO BOWEL MOVEMENT YET, GIVEN MIRALAX AND PRUNE JUICE FOR CONSTIPATION. PT STATES HE IS HAVING DIFFICULTY SLEEPING, BUT DOES NOT WANT TO TAKE ANY MEDICATION FOR INSOMNIA. NO FURTHER CONCERNS AT THIS TIME.
[2020-10-12] VITALS (8 sets, daily range): BP systolic 139–182; BP diastolic 57–76; PULSE 60–69; TEMP 97.3–98.4
--- NOTE | 2020-10-12 02:48 | NUR ---
PT HAS SOME BRUISING ON THE LEFT ABDOMEN. WHEN ASKED ABOUT IT, THE PATIENT STATED THAT THIS IS FROM "ALL THE NEEDLE STICKS". (THIS IS REFERING TO HIS INSULIN SHOTS.)
--- NOTE | 2020-10-12 04:27 | NUR ---
PT REST IN BED AND IS SLOW TO TURN AND GET UP OUT OF BED. RIGHT UPPER EXTREMITY WITH NO S/S INFILTRATION OF IV SITE. BLISTER ON RIGHT LE HAS BROKE OPEN. LEFT LOWER EXT. WITH SEVERAL SMALL BLISTERS. EDEMA TO BILAT LE 2-3+. RIGHT EYE BECOMES A LITTLE CRUSTY AFTER EYE HAS BEEN WATERING. STATES HE HAD A PROCEDURE THAT DID NOT GO RIGHT ON HIE EYE. CALL LIGHT IN REACH.
[2020-10-12 06:08] LABS: BASO % 0.4 % (0.0-2.0); EOS # 0.1 (0.0-0.7); EOS % 1.8 % (0-4.0); GRAN # 3.7 (1.4-6.5); GRAN % 64.1 % (42.2-75.2); HEMOGLOBIN 8.3 g/dl (13.5-18.0); LYMPH # 1.2 (1.2-3.4); LYMPH % 20.6 % (20.0-51.0); MEAN CELL VOLUME 95 fl (80.0-100.0); MEAN CORPUSCULAR HEMOGLOBIN 31 pg (27.0-31.0); MEAN CORPUSCULAR HGB CONC 33 g/dl (33.0-37.0); MEAN PLATELET VOLUME 10.8 fl (7.4-10.4); MONO # 0.7 (0.1-0.6); MONO % 12.7 % (1.7-9.3); PLATELET COUNT 188 K/mm3 (130-400); RED BLOOD COUNT 2.64 M/mm3 (4.20-5.60); REDCELL DISTRIBUTION WIDTH-CV 13.5 % (11.5-14.5)
[2020-10-12 06:17] LABS: CALCIUM 8.3 mg/dL (8.4-10.2); CREATININE, serum 3.7 (0.66-1.25); POTASSIUM 4.8 mmol/L (3.4-5.0)
--- NOTE | 2020-10-12 06:38 | NUR ---
PT HAD UNEVENTFUL NIGHT. WAS ABLE TO AMBULATE TO THE BATHROOM AND BACK WITH 1 ASSIST. NO OTHER CONCERNS.
--- NOTE | 2020-10-12 15:54 | NUR ---
Pt assessment completed and charted, medications administered per nov. Pt A&O, 1 assist w/ walker in room. Pt has LFA INT IV that flushes well w/o issue. Pt on room air this morning, occasionally wearing 1-2 L oxymask when napping/sleeping. Pt on tele, paced, no issues noted. Pt on fluid restriction, verbalized understanding. No insulin coverage need this so far today. VSS. Pt has blisters to BLE, unopened on LLE, opened to RLE, not covered w/ dressing, 3+ edema, reddened. Lt eye red/irritated, per pt "old surgery gone bad". Pt denies any intervention for eye. Pt abdomen has increasing bruising and lumps noticed today from heparin and insulin shots. Pt denies any pain to abdomen. Pt does c/o pain to left groin area and bilateral hips. Pt received pain meds from exchange underwriting consultant during shift change, pt has not needed pain medications throughout day. Pt requesting pain medications at this time. Administered per nov. Pt has become increasingly weak and tired throughout last week.
--- NOTE | 2020-10-12 18:47 | NUR ---
Pt complaining of nausea and dizziness. VS obtained, satting 96% on 2L oxymask. Oxymask removed at this time. HRRR. Pt SBP 174/73 at 1600 VS check, coreg administered per schedule at 1700. SBP rechecked at 1815, 176/76. Phenergan per administered, pt also eating crackers. Will recheck BP and administer PRN labetalol if needed.
--- NOTE | 2020-10-12 21:40 | NUR ---
PATIENT RECEIVED IN BED REPORTED PAIN ON BHIPS.NIGHT PROVIDER INFORMED ORDERS PER PT NOTES.DUE MEDS GIVEN,ASSESSMENT DONE.ASSISTED TO HAVE HIS XRAYS.
[2020-10-13 04:23] VITALS: BP 159/65; PULSE 62; TEMP 97.3
--- NOTE | 2020-10-13 05:11 | NUR ---
PATIENT IS CALM IN BED,NAUSEA HAS REDUCED.AMBULATING WITH ASSISTANCE TO THE BATHROOM.NO NEEDS AT THIS TIME
[2020-10-13 06:42] LABS: BASO % 0.5 % (0.0-2.0); EOS # 0.1 (0.0-0.7); EOS % 2.1 % (0-4.0); GRAN # 3.8 (1.4-6.5); LYMPH # 1.1 (1.2-3.4); LYMPH % 19.6 % (20.0-51.0); MEAN CELL VOLUME 97 fl (80.0-100.0); MEAN CORPUSCULAR HGB CONC 32 g/dl (33.0-37.0); MEAN PLATELET VOLUME 10.6 fl (7.4-10.4); MONO # 0.7 (0.1-0.6); MONO % 11.5 % (1.7-9.3); PLATELET COUNT 208 K/mm3 (130-400); RED BLOOD COUNT 2.78 M/mm3 (4.20-5.60); REDCELL DISTRIBUTION WIDTH-CV 13.5 % (11.5-14.5)
[2020-10-13 06:50] LABS: CALCIUM 8.6 mg/dL (8.4-10.2); CREATININE, serum 3.34 (0.66-1.25); POTASSIUM 4.5 mmol/L (3.4-5.0)
[2020-10-13 07:28] VITALS: BP 180/76; PULSE 60; TEMP 97.2
[2020-10-13 07:34] LABS: HEMATOCRIT 26.9 % (42.0-52.0); HEMOGLOBIN 8.7 g/dl (13.5-18.0); MEAN CORPUSCULAR HEMOGLOBIN 31 pg (27.0-31.0)
--- NOTE | 2020-10-13 07:57 | NUR ---
PT AMBULATED TO THE BATHROOM, OUTPUT OF 300ML YELLOW, CLEAR URINE. PT IS STEADY WITH THE WALKER. BACK TO BED, AND EATING BREAKFAST. NO CONCERNS AT THIS TIME. CALL LIGHT WITHIN REACH.
--- NOTE | 2020-10-13 11:39 | NUR ---
PT HAS AN ORDER FOR CATHETER AND STRICT I/O'S WELL A BUMEX GTT. WILL MONITOR CLOSELY. NO FURTHER CONCERNS AT THIS TIME.
[2020-10-13 11:59] VITALS: BP 161/75; PULSE 59; TEMP 97.4
[2020-10-13 15:52] VITALS: BP 176/71; PULSE 58; TEMP 97.3
[2020-10-13 17:48] VITALS: BP 159/76; PULSE 64
[2020-10-13 20:00] VITALS: BP 157/68; PULSE 61; TEMP 97.3
--- NOTE | 2020-10-13 20:00 | NUR ---
Bedside shift report received from THOR Kraft. At time of assessment, patient is resting in bed; He is alert and oriented and complains of pain in left hip 8/10; PRN Ultram administered. Lungs are clear in all lobes, HR normal and regular, pulses 2/1. Bilateral lower extremities have 3+ pitting edema and have various venous stasis ulcers; The back of the right lower leg has a large, open ulcer that is SEWER HAND per doctor's recs. Patient wears 3 liters oxygen via oxymask and is tolerating well. Chaudhry is draining pale yellow, clear urine. Comfort measures met and call light in reach.
[2020-10-14 00:40] VITALS: BP 158/69; PULSE 63; TEMP 97.5
[2020-10-14 06:24] VITALS: BP 147/45; PULSE 60; TEMP 97.9
[2020-10-14 07:20] LABS: BASO % 0.3 % (0.0-2.0); EOS # 0.2 (0.0-0.7); EOS % 2.5 % (0-4.0); GRAN % 66.2 % (42.2-75.2); LYMPH # 1.2 (1.2-3.4); LYMPH % 19.4 % (20.0-51.0); MEAN CELL VOLUME 98 fl (80.0-100.0); MEAN CORPUSCULAR HGB CONC 32 g/dl (33.0-37.0); MEAN PLATELET VOLUME 10.7 fl (7.4-10.4); MONO # 0.7 (0.1-0.6); MONO % 11.4 % (1.7-9.3); PLATELET COUNT 231 K/mm3 (130-400); REDCELL DISTRIBUTION WIDTH-CV 13.6 % (11.5-14.5)
[2020-10-14 07:24] LABS: HEMATOCRIT 29.5 % (42.0-52.0); HEMOGLOBIN 9.4 g/dl (13.5-18.0); MEAN CORPUSCULAR HEMOGLOBIN 31 pg (27.0-31.0)
[2020-10-14 07:28] LABS: ALBUMIN 3.8 gm/dL (3.5-5.0); CALCIUM 8.5 mg/dL (8.4-10.2); CREATININE, serum 3.04 (0.66-1.25); PHOSPHOROUS 4.8 mg/dL (2.5-4.5)
[2020-10-14 08:10] VITALS: BP 132/56
[2020-10-14] MEDS ORDERED: 00186-0370-20 IH (08:46)
[2020-10-14] MEDS ORDERED: SPIRIVA RE2.5 MCG/Ac IH (08:46)
--- NOTE | 2020-10-14 09:45 | NUR ---
pt assessment completed and charted, medications administered per nov. Pt A&O, SBA w/ walker in room. Pt intermittently on O2. O2 check prior to rounds, pt satting 89%, placed on oxymask 2L. Pt had nausea when breakfast tray arrived, set aside for awhile, attempted to eat later, some vomiting of eggs noted. Pt states phenergan has caused him some confusion, provided w/ crackers and sprite at this time, will discuss w/ physician. Pt has not had BM in about a week. Bowel regimen started of hot water and prunes, vomited some of it up this morning. Also provided w/ scheduled miralax, possibly vomited that up as well. Pt has choudhury in place, draining cloudy yellow urine, 1000 ml output collected this morning. Bumex gtt to LFA running, decreased this morning from 5 to 2ml/hr. BLE edema 3+ noted, some swelling has improved. Blisters to BLE, rt posterior calf opened, red. LLE blisters unopened. bruising noted to abdomen from insulin and hep shots, physicians aware, no new orders at this time. pt ambulated w/ PT using walker, did well. No further needs expressed at this time.
--- NOTE | 2020-10-14 10:31 | NUR ---
Coffee Bar Attendant attended clinical rounds with the team and patient reports that he is nauseous and has not had a bowel movement. SW contacted Lisa at [facility] yesterday to provide update. PEDRO PABLO will continue to follow.
[2020-10-14 12:37] VITALS: BP 138/50; PULSE 62; TEMP 97.7
[2020-10-14 16:00] VITALS: BP 147/63; PULSE 65; TEMP 97.6
[2020-10-14 20:59] VITALS: BP 149/51; PULSE 61; TEMP 97.6
--- NOTE | 2020-10-14 21:00 | NUR ---
PATIENT WAS RECEIVED CALM IN BED,MEDS GIVEN VITALS DONE,ASSESMENT DONE.ON O2 THEAPY,BUMEX DRIP DRIPPING WELL.NO CONCERNS REPORTED.NO NEEDS AT THIS TIME.
[2020-10-15] VITALS (7 sets, daily range): BP systolic 138–169; BP diastolic 51–69; PULSE 59–66; TEMP 97.5–98.6
--- NOTE | 2020-10-15 06:09 | NUR ---
PATIENT HAD A RESTFUL NIGHT.PATIENT IS ON 2L OF O2.HE DENIES NAUSEA,REPORTS HIP PAIN,DECLINES TO HAVE PAIN MEDS.NO OTHER NEEDS AT THIS TIME.
[2020-10-15 07:05] LABS: BASO % 0.4 % (0.0-2.0); EOS # 0.1 (0.0-0.7); EOS % 2.1 % (0-4.0); GRAN # 4.3 (1.4-6.5); GRAN % 64.2 % (42.2-75.2); LYMPH # 1.4 (1.2-3.4); LYMPH % 21.3 % (20.0-51.0); MEAN CELL VOLUME 96 fl (80.0-100.0); MEAN CORPUSCULAR HGB CONC 32 g/dl (33.0-37.0); MEAN PLATELET VOLUME 10.7 fl (7.4-10.4); MONO # 0.8 (0.1-0.6); MONO % 11.6 % (1.7-9.3); PLATELET COUNT 233 K/mm3 (130-400); RED BLOOD COUNT 2.86 M/mm3 (4.20-5.60); REDCELL DISTRIBUTION WIDTH-CV 13.5 % (11.5-14.5)
[2020-10-15 07:06] LABS: HEMATOCRIT 27.5 % (42.0-52.0); HEMOGLOBIN 8.7 g/dl (13.5-18.0); MEAN CORPUSCULAR HEMOGLOBIN 30 pg (27.0-31.0)
[2020-10-15 07:22] LABS: ALBUMIN 3.5 gm/dL (3.5-5.0); CALCIUM 8.3 mg/dL (8.4-10.2); CREATININE, serum 2.89 (0.66-1.25); PHOSPHOROUS 3.9 mg/dL (2.5-4.5); POTASSIUM 3.8 mmol/L (3.4-5.0)
--- NOTE | 2020-10-15 10:03 | NUR ---
Pt assessment completed and charted, medications administered per nov. pt A&O, sba w/ walker in room. Pt has LFA IV w/ bumex gtt @ 3ml/hr running /wo issue. Pt has choudhury cath draining clear yellow urine to dd. LS diminished throughout, on room air at time of assessment. Pt ambulated w/ PT this morning about 200 ft. Pt on room air during that time. Pt intermittently on O2 throughout day and at night. BS active, per pt he had "slight BM" last night. Informed pt to not flush so staff could see. Pt not always clear w/ descriptions of symptoms and what is occurring. Edema has greatly improved the last few days. BLE have blisters, open on RLE, blisters to LLE closed. No further needs at this time.
--- NOTE | 2020-10-15 16:34 | NUR ---
Pt doing well today, no issues noted throughout day. Pt has not had any other BM today other than "slight one" this morning. Pt ambulated halls multiple times today. tolerating well
--- NOTE | 2020-10-15 20:00 | NUR ---
Bedside shift report received from THOR Phillips. At time of assessment patient is sitting on the edge of the bed. He is alert and oriented with no complaints of pain. He does complain of discomfort due to constipation; bowel sounds are audible in all quadrants but his abdomen is distended and firm. Bilateral lower extremities are edematous with 2+ pitting and do not appear tender to the touch. Large venous stasis wound on back of right calf is GILLIAN and has developed a scab with no drainage. Patient is currently on RA with no signs of increased work of breathing. Comfort measures provided, call light in reach.
[2020-10-16 03:54] VITALS: BP 156/72; PULSE 61; TEMP 97.7
[2020-10-16 07:30] LABS: MEAN CELL VOLUME 96 fl (80.0-100.0); MEAN CORPUSCULAR HGB CONC 32 g/dl (33.0-37.0); MEAN PLATELET VOLUME 10.5 fl (7.4-10.4); PLATELET COUNT 241 K/mm3 (130-400); RED BLOOD COUNT 3.08 M/mm3 (4.20-5.60); REDCELL DISTRIBUTION WIDTH-CV 13.4 % (11.5-14.5)
[2020-10-16 07:31] LABS: HEMATOCRIT 29.5 % (42.0-52.0); HEMOGLOBIN 9.5 g/dl (13.5-18.0); MEAN CORPUSCULAR HEMOGLOBIN 31 pg (27.0-31.0)
[2020-10-16 07:34] VITALS: BP 131/51; PULSE 59; TEMP 98.7
[2020-10-16 07:53] LABS: CALCIUM 8.6 mg/dL (8.4-10.2); CREATININE, serum 2.6 (0.66-1.25); POTASSIUM 3.4 mmol/L (3.4-5.0)
[2020-10-16 08:06] VITALS: BP 139/49; PULSE 65; TEMP 97.5
--- NOTE | 2020-10-16 09:00 | NUR ---
Pt assessment complete. Pt is sitting up on the side of the bed upon entry, he is A/O x4. He reports abdominal discomfort, is passing gas has not had a stool. Leanne ZHONG. No SOB. POC discussed with patient. Call light within reach.
[2020-10-16] MEDS ORDERED: PRINIVIL40 MG PO (10:38)
[2020-10-16] MEDS ORDERED: BUMEX 1MG TA1 MG/TA1 PO (10:40)
[2020-10-16] MEDS ORDERED: NITRO-DUR0.4 MG/PAT TD (11:00)
[2020-10-16] MEDS ORDERED: NORVASC2.5 MG PO (11:01)
[2020-10-16] MEDS ORDERED: COREG 25MG25 MG/TAB PO (11:06)
[2020-10-16] MEDS ORDERED: GLYCERIN S1 SUPP.REC RC (11:12)
[2020-10-16 13:34] VITALS: BP 159/54; PULSE 61; TEMP 97.3
--- NOTE | 2020-10-16 13:46 | NUR ---
Primary nurse was assisted with [phone] patient care by [employer] student Ciera Garcia and [employer] instructor Helena Huitron RN-BC.
--- NOTE | 2020-10-16 14:57 | NUR ---
Discharge paperwork and instructions reviewed with patient all questions answered at this time. IV removed. Pt wheeled out at this time.
--- NOTE | 2020-10-16 16:24 | NUR ---
Hourly Shift Manager attended clinical rounds with the team and patient to discharge home today. SW met with patient and his , Stephany to review discharge plan. Patient would like to have [facility] upon discharge. PEDRO PABLO contacted Lisa at [facility] and faxed discharge orders. No additional needs at this time.
== END 2020-10-16 14:58 | disposition home health service (06) | DRG 280 ==
LOC: COL.ER 09:34 → MEDICAL 12:50
PROVIDERS: Internal Medicine Nephrology; Nurse Practitioner; Physician Assistant; Student in an Organized Health Care Education/Training Program; ADMIT Family Medicine
PROC: 4A023N8 Measurement of Cardiac Sampling and Pressure, Bilateral, Percutaneous Approach (ICD-10-PCS; principal; 2020-10-06)
PROC: B2111ZZ Fluoroscopy of Multiple Coronary Arteries using Low Osmolar Contrast (ICD-10-PCS; 2020-10-06)
DX: I21.4 Non-ST elevation (NSTEMI) myocardial infarction (principal); I50.23 Acute on chronic systolic (congestive) heart failure; J96.01 Acute respiratory failure with hypoxia; I13.0 Hypertensive heart and chronic kidney disease with heart failure and stage 1 through stage 4 chronic kidney disease, or unspecified chronic kidney disease; N17.9 Acute kidney failure, unspecified; E11.22 Type 2 diabetes mellitus with diabetic chronic kidney disease; I25.10 Atherosclerotic heart disease of native coronary artery without angina pectoris; E03.9 Hypothyroidism, unspecified; N40.0 Benign prostatic hyperplasia without lower urinary tract symptoms; E87.5 Hyperkalemia; M79.652 Pain in left thigh; M25.552 Pain in left hip; K59.00 Constipation, unspecified; D64.9 Anemia, unspecified; I87.2 Venous insufficiency (chronic) (peripheral); N18.32 Chronic kidney disease, stage 3b; K21.9 Gastro-esophageal reflux disease without esophagitis; Z20.828 Contact with and (suspected) exposure to other viral communicable diseases; E11.40 Type 2 diabetes mellitus with diabetic neuropathy, unspecified; Z79.82 Long term (current) use of aspirin; Z95.0 Presence of cardiac pacemaker
CPT/HCPCS: 99222-AI; 99231-AI; 99232-AI; 99233-AI; A9284; J0360; J1644; J1815; J1940; J2250; J2405; J2550; J2916; J3010; J7030; Q9967

== ENCOUNTER → 2021-07-23 | Outpatient (CLI) | payer MEDICARE, OTHER ==
[~2021-07-23] MED LIST changes: +BUMEX 1MG TA1 MG/TA1 PO; +BUMEX2 MG PO; +CARTIA XT180 MG PO; +COLACE 100100 MG/CAP PO; +COREG12.5 MG PO; +DULCOLAX TAB5 MG PO; +GLUCOTROL10 MG PO; +GLYCERIN S1 SUPP.REC RC; +LEVEMIR100 U/ML SQ; +LIPITOR 40MG TA40 MG PO; +LIPITOR20 MG PO; +MIRALAX510G PO; +NITRO-DUR0.4 MG/PAT TD; +NORVASC 5MG5 MG/TAB PO; +NORVASC2.5 MG PO; +NOVOLOG 100U100 U/M1 SQ; +PEPCID 20MG TAB20 MG PO; +PHOSLO667 MG PO; +PRINIVIL5 MG PO; +SENNA-LAX8.6 MG PO; +SPIRIVA RE2.5 MCG/Ac IH; +TYLENOL 325MG325 MG PO; +ZESTRIL30 MG PO
== END ==
LOC: COL.VAS 12:05
DX: Z01.810 Encounter for preprocedural cardiovascular examination (principal); Z99.2 Dependence on renal dialysis

== ENCOUNTER 2021-08-04 17:00 | Emergency (ER) | payer MEDICARE, OTHER ==
[~2021-08-04] VITALS: Ht 185.4 cm; Wt 98.6 kg
[2021-08-04 17:14] VITALS: TEMP 97.5
[2021-08-04 17:47] LABS: BASO # 0.1 K/mm3 (0.0-0.2); BASO % 0.9 % (0.0-2.0); EOS # 0.1 K/mm3 (0.0-0.7); EOS % 1.7 % (0-4.0); GRAN # 3.5 K/mm3 (1.4-6.5); GRAN % 60.3 % (42.2-75.2); HEMATOCRIT 39.4 % (42.0-52.0); HEMOGLOBIN 12.4 g/dl (13.5-18.0); LYMPH # 1.4 K/mm3 (1.2-3.4); LYMPH % 24.2 % (20.0-51.0); MEAN CELL VOLUME 104 fl (80.0-100.0); MEAN CORPUSCULAR HEMOGLOBIN 33 pg (27.0-31.0); MEAN CORPUSCULAR HGB CONC 32 g/dl (33.0-37.0); MEAN PLATELET VOLUME 9.5 fl (7.4-10.4); MONO # 0.7 K/mm3 (0.1-0.6); MONO % 12.7 % (1.7-9.3); PLATELET COUNT 246 K/mm3 (130-400); RED BLOOD COUNT 3.79 M/mm3 (4.20-5.60); REDCELL DISTRIBUTION WIDTH-CV 17.2 % (11.5-14.5)
[2021-08-04 18:55] VITALS: BP 131/81; PULSE 80
== END 2021-08-04 18:55 | disposition home or self-care (01) ==
LOC: COL.ER 17:00
PROVIDERS: Family Medicine
DX: R11.0 Nausea (principal); R50.9 Fever, unspecified; E11.22 Type 2 diabetes mellitus with diabetic chronic kidney disease; N18.6 End stage renal disease; I21.4 Non-ST elevation (NSTEMI) myocardial infarction; Z99.2 Dependence on renal dialysis; Z79.4 Long term (current) use of insulin; Z79.82 Long term (current) use of aspirin

== ENCOUNTER → 2021-09-09 | Outpatient (CLI) | payer OTHER | LOC: COL.VAS 13:22 | DX: N18.6 End stage renal disease (principal) ==

== ENCOUNTER 2021-10-29 11:38 | Day surgery (SDC) | payer OTHER ==
[2007-06-18 18:19] VITALS: BP 120/74
[~2021-10-29] VITALS: Ht 185.4 cm; Wt 102.2 kg
[2021-10-29] VITALS (11 sets, daily range): BP systolic 159–196; BP diastolic 69–89; PULSE 59–64; TEMP 97.1–97.3
[2021-10-29] MEDS ORDERED: COLACE 100100 MG/CAP PO (12:05)
[2021-10-29] MEDS ORDERED: ASPIRIN 81M81 MG/TA2 PO (12:06)
[2021-10-29] MEDS ORDERED: PEPCID 20MG TAB20 MG PO (12:07)
[2021-10-29] MEDS ORDERED: FLOMAX 0.40.4 MG/CAP PO (12:08)
[2021-10-29] MEDS ORDERED: PLAVIX 75MG TAB75 MG PO (12:08)
[2021-10-29] MEDS ORDERED: COREG 25MG25 MG/TAB PO (12:08)
[2021-10-29] MEDS ORDERED: BUMEX2 MG PO (12:09)
[2021-10-29] MEDS ORDERED: NORVASC 5MG5 MG/TAB PO (12:10)
[2021-10-29] MEDS ORDERED: SYNTHROID0.175 MG PO (12:10)
[2021-10-29] MEDS ORDERED: LEVEMIR SQ (12:12)
[2021-10-29] MEDS ORDERED: LIPITOR 40MG TA40 MG PO (12:13)
[2021-10-29] MEDS ORDERED: MIRALAX PA17 GM/Dose PO (12:13)
[2021-10-29] MEDS ORDERED: NITRO-DUR0.6 MG/PAT TD (12:13)
[2021-10-29] MEDS ORDERED: PRINIVIL20 MG PO (12:14)
[2021-10-29] MEDS ORDERED: DULCOLAX TAB5 MG PO (12:15)
[2021-10-29] MEDS ORDERED: FOSAMAX 70MG TA70 MG PO (12:16)
[2021-10-29] MEDS ORDERED: PHOSLO667 MG PO (12:16)
[2021-10-29 13:16] LABS: CALCIUM 8.3 mg/dL (8.4-10.2); CREATININE, serum 5.18 mg/dL (0.72-1.25); POTASSIUM 5.4 mmol/L (3.5-4.5)
--- NOTE | 2021-10-29 16:40 | NUR ---
Patient arrived back into bay 6 from PACU. Patient turned from 3L to 5L of oxgyen. Maintaining oxygen saturation at 90-92%. Bleeding around dialysis catheter marked and quickly noted to be satuating dressing. Dr. Diaz notified of increasing oxygen needs and dressing becoming saturated with blood.
--- NOTE | 2021-10-29 16:50 | NUR ---
Dr. Diaz gave verbal orders to notify hospitalist of patient since increasing oxygen requirements and saturation. Research Editor notified of situation. Dr López with hosptialist team notified. Was told that if patient would require diaylsis they would not be able to admit patient and to call back in 15 minutes.
--- NOTE | 2021-10-29 17:15 | NUR ---
Dr. Diaz in to see patient. MD notified patient and family of need to spend the night due to medical comorbidities and increasing oxygen need.
--- NOTE | 2021-10-29 17:20 | NUR ---
Orbitread Operator stated she would be here shortly.
--- NOTE | 2021-10-29 17:35 | NUR ---
Twan TEST GRADER notified of increasing blood pressure. Orders to give labatolol if SBP >190, DBP >90.
--- NOTE | 2021-10-29 18:00 | NUR ---
Dr. Diaz in to speak with patient and .
--- NOTE | 2021-10-29 18:59 | NUR ---
Dr. Diaz and household worker made plan to bring patient to ED triage for further work up. Report given to ED wet primer powder blender. Patient brought to ED triage via wheelchair on 4L O2 via nasal canula. Patient escorted to ED by Sarah MCRAE.
== END 2021-10-29 19:03 | disposition home or self-care (01) ==
LOC: SDCO 11:38
PROVIDERS: Nurse Anesthetist, Certified Registered
DX: T82.41XA Breakdown (mechanical) of vascular dialysis catheter, initial encounter (principal); L76.34 Postprocedural seroma of skin and subcutaneous tissue following other procedure; N18.6 End stage renal disease; Z79.899 Other long term (current) drug therapy; Z98.890 Other specified postprocedural states
CPT/HCPCS: C1750; J0690; J1644; J2704; J3010

== ENCOUNTER 2021-10-29 18:58 | Emergency (ER) | payer OTHER ==
[~2021-10-29] VITALS: Ht 185.4 cm; Wt 90.9 kg
[~2021-10-29 18:58] MED LIST changes: +FOSAMAX 70MG TA70 MG PO; +LEVEMIR SQ; +MIRALAX PA17 GM/Dose PO; +NITRO-DUR0.6 MG/PAT TD; +PRINIVIL20 MG PO
[2021-10-29 19:53] VITALS: TEMP 97.3
[2021-10-29 21:19] LABS: BASO % 0.2 % (0.0-2.0); EOS # 0.1 K/mm3 (0.0-0.7); EOS % 0.8 % (0.0-4.0); GRAN # 11.1 K/mm3 (1.4-6.5); GRAN % 84.4 % (42.2-75.2); HEMATOCRIT 30.9 % (42.0-52.0); HEMOGLOBIN 10.2 g/dl (13.5-18.0); LYMPH # 1.1 K/mm3 (1.2-3.4); MEAN CELL VOLUME 103 fl (80.0-100.0); MEAN CORPUSCULAR HEMOGLOBIN 34 pg (27-31); MEAN CORPUSCULAR HGB CONC 33 g/dl (33.0-37.0); MEAN PLATELET VOLUME 10.1 fl (7.4-10.4); MONO # 0.8 K/mm3 (0.1-0.6); MONO % 6.1 % (1.7-9.3); PLATELET COUNT 168 K/mm3 (130-400); REDCELL DISTRIBUTION WIDTH-CV 13.4 % (11.5-14.5)
[2021-10-29 23:04] LABS: CALCIUM 8.2 mg/dL (8.4-10.2); CREATININE, serum 5.09 mg/dL (0.72-1.25); MAGNESIUM 1.7 mg/dL (1.6-2.6); PHOSPHOROUS 6.1 mg/dL (2.3-4.7); POTASSIUM 5.4 mmol/L (3.5-4.5)
[2021-10-30 05:45] VITALS: BP 144/85; PULSE 72
== END 2021-10-30 05:45 | disposition home or self-care (01) ==
LOC: COL.ER 18:58
PROVIDERS: Nurse Practitioner Family; Student in an Organized Health Care Education/Training Program
DX: E11.22 Type 2 diabetes mellitus with diabetic chronic kidney disease (principal); I12.0 Hypertensive chronic kidney disease with stage 5 chronic kidney disease or end stage renal disease; N18.6 End stage renal disease; Z99.2 Dependence on renal dialysis

== ENCOUNTER → 2022-01-15 | Outpatient (CLI) | payer MEDICARE | LOC: COL.RAD 01-13 14:15 | DX: R33.9 Retention of urine, unspecified (principal); N28.89 Other specified disorders of kidney and ureter ==

== ENCOUNTER 2022-02-05 10:03 | Emergency (ER) | payer OTHER, MEDICARE ==
[2022-02-05 10:33] VITALS: PULSE 0
--- NOTE | 2022-02-05 11:23 | NUR ---
Patient presented to emergency department code blue. social worker aide met with patient's , Stephany #[phone] and offered support and escorted to waiting room. Patient had collapsed and wasn't responding in her car after patient's dialysis appointment. Spouse provided worker with patient's living will and durable power of district attorney for health care. Spouse is aware patient is coding and went into patient's room prior to code being stopped. Spouse notified her daughter and son, via telephone, and they are both coming from [facility]. Spouse notified her sister, who came to the hospital to be with her. Patient and spouse stated they have pre plans at [facility] and worker contacted them. True, house superviser, contacted [facility] and confirmed that patient is not a candidate to donate and authorized patient discharge to home. Spouse and sister will wait at the hospital until [facility] arrive at the hospital. Chaplain Hammond was with spouse and sister.
== END 2022-02-05 11:45 | disposition expired ==
LOC: COL.ER 10:03
DX: I46.9 Cardiac arrest, cause unspecified (principal); I49.01 Ventricular fibrillation; R04.2 Hemoptysis; Z99.2 Dependence on renal dialysis; Z95.5 Presence of coronary angioplasty implant and graft; Z95.0 Presence of cardiac pacemaker
CPT/HCPCS: J0171; J0282